=== PATIENT | female | born 1980 | race Caucasian/White ===

== ENCOUNTER 2021-01-24 16:40 | Emergency (ER) | payer OTHER ==
[2021-01-24] MEDS ORDERED: NAPROXEN500 MG PO (20:31)
== END 2021-01-24 22:00 | disposition home or self-care (01) ==
LOC: FER 16:40
DX: S96.911A Strain of unspecified muscle and tendon at ankle and foot level, right foot, initial encounter (principal); M25.474 Effusion, right foot; F17.210 Nicotine dependence, cigarettes, uncomplicated; W18.41XA Slipping, tripping and stumbling without falling due to stepping on object, initial encounter; Y92.007 Garden or yard of unspecified non-institutional (private) residence as the place of occurrence of the external cause
CPT/HCPCS: 73610; 73630; J1885

== ENCOUNTER 2021-01-26 07:25 | Emergency (ER) | payer OTHER ==
[~2021-01-26 07:25] MED LIST: NAPROXEN500 MG PO
[2021-01-26] MEDS ORDERED: DICLOFENAC SODI75 MG PO (09:12)
== END 2021-01-26 09:24 | disposition home or self-care (01) ==
LOC: FER 07:25
DX: S20.211A Contusion of right front wall of thorax, initial encounter (principal); W19.XXXA Unspecified fall, initial encounter; Y92.009 Unspecified place in unspecified non-institutional (private) residence as the place of occurrence of the external cause
CPT/HCPCS: 71101